=== PATIENT | female | born 2000 | race Caucasian/White ===

== ENCOUNTER → 2021-07-11 | Outpatient (CLI) | payer OTHER ==
--- NOTE | 2021-07-11 12:43 | US ---
EXAMINATION TYPE: US abdomen complete DATE OF EXAM: 07/11/2021 COMPARISON: NONE CLINICAL HISTORY: R10.13 EPIGASTRIC PAIN. Abdominal pain. EXAM MEASUREMENTS: Liver Length: 12.0 cm Gallbladder Wall: 0.18 cm CBD: 046 cm Spleen: 7.6 cm Right Kidney: 9.1 x 3.8 x 3.8 cm Left Kidney: 9.1 x 5.2 x 4.6 cm Limited due to gas. Pancreas: Slightly limited visibility of tail. Liver: Appears wnl. Gallbladder: Folds seen. Evidence for sonographic Rios's sign: No CBD: Portions seen appear wnl Spleen: Appears wnl Right Kidney: No hydronephrosis or masses seen Left Kidney: Renal pelvis appears prominent versus slightly dilated. Upper IVC: Appears wnl Abd Aorta: Appears wnl IMPRESSION: Mild fullness left renal collecting system without medhat hydronephrosis.
== END | disposition home or self-care (01) ==
LOC: RADUSWWP 11:50
PROVIDERS: ATTEND Family Medicine
DX: R93.41 Abnormal radiologic findings on diagnostic imaging of renal pelvis, ureter, or bladder (principal)
CPT/HCPCS: 76700